=== PATIENT | male | born 1965 | race Hispanic/Latino ===

== ENCOUNTER 2022-07-21 11:48 | Emergency (ER) | payer BC ==
[~2022-07-21] VITALS: Ht 175.3 cm; Wt 90.7 kg
[2022-07-21] MEDS ORDERED: ONDANSETRON 4MG INJ ONE (12:13)
[2022-07-21] MEDS ORDERED: MORPHINE 4 MG SYG ONE (12:13)
[2022-07-21] MEDS ORDERED: ACET-2079 PO (13:14)
[2022-07-21 14:33] VITALS: BP 128/74
== END 2022-07-21 14:36 | disposition home or self-care (01) ==
LOC: EDH 11:48
DX: S52.592A Other fractures of lower end of left radius, initial encounter for closed fracture (principal); E11.9 Type 2 diabetes mellitus without complications; E78.00 Pure hypercholesterolemia, unspecified; Z98.890 Other specified postprocedural states; X58.XXXA Exposure to other specified factors, initial encounter; Y93.89 Activity, other specified; Y92.89 Other specified places as the place of occurrence of the external cause; Y99.8 Other external cause status
CPT/HCPCS: 99284; 96374; 96375; 73090; 73110; 29125; J2405; J2270